=== PATIENT | female | born 1980 | race Caucasian/White ===

== ENCOUNTER 2017-10-26 21:28 | Emergency (ER) | payer OTHER ==
[2017-10-26] MEDS: MAGNESIUM SULFATE 2 GM/50 ML 50 ML IVPB (23:01)
[2017-10-26] MEDS: METHYLPREDNISOLONE 125 MG INJ IV (23:01)
[2017-10-26] MEDS: IPRATROPIUM (NEB) 0.5 MG/2.5 ML AMP INH (23:28)
[2017-10-26] MEDS: LEVALBUTEROL (NEB) 1.25 MG/0.5 ML AMP INH (23:28)
[2017-10-27 00:08] LABS: ADD MAN DIFF? NO
[2017-10-27 00:12] LABS: WHITE BLOOD COUNT 7.8 10^3/ul (4.8-10.8)
[2017-10-27 00:12] LABS: BASOPHILS % 0.5 % (0.0-2.0); EOSINOPHILS # 0.5 10^3/ul (0.0-0.5); EOSINOPHILS % 6.5 % (0.0-7.0); HEMOGLOBIN 14.1 g/dl (12.0-16.0); LYMPHOCYTES # 2.7 10^3/ul (0.8-2.9); LYMPHOCYTES % 34.1 % (15.0-51.0); MEAN CORPUSCULAR HEMOGLOBIN 31.1 pg (29.0-33.0); MEAN CORPUSCULAR HGB CONC 33.6 g/dl (32.0-37.0); MEAN CORPUSCULAR VOLUME 92.5 fl (82.0-101.0); MEAN PLATELET VOLUME 10.6 fl (7.4-10.4); MONOCYTE # 0.5 10^3/ul (0.3-0.9); MONOCYTES % 6.8 % (0.0-11.0); NEUTROPHIL # 4.1 10^3/ul (1.6-7.5); NEUTROPHILS % 51.8 % (39.0-77.0); PLATELET COUNT 280 10^3/UL (140-415); RED BLOOD COUNT 4.54 10^6/ul (4.20-5.40); RED CELL DISTRIBUTION WIDTH 13.2 % (11.5-14.5)
[2017-10-27 00:31] LABS: ANION GAP 17 (8-16); BLOOD UREA NITROGEN 4 mg/dl (7-20); CALCIUM 8.4 mg/dl (8.4-10.2); CARBON DIOXIDE 25 mmol/L (21-31); CHLORIDE 110 mmol/L (97-110); CREATININE 0.65 mg/dl (0.44-1.00); GLUCOSE 95 mg/dl (70-220); POTASSIUM 3.5 mmol/L (3.5-5.1); SODIUM 148 mmol/L (135-144)
== END 2017-10-27 03:22 | disposition home or self-care (01) ==
LOC: E/R 21:28
DX: J45.901 Unspecified asthma with (acute) exacerbation (principal); R05 Cough
CPT/HCPCS: 71045; 80048; 81025; 85025; 94644; 96374; 96375; 99284-25

== ENCOUNTER 2017-11-09 22:29 | Emergency (ER) | payer OTHER ==
[2017-11-09] MEDS: METHYLPREDNISOLONE 125 MG INJ IM (23:53)
[2017-11-09] MEDS: IPRATROPIUM (NEB) 0.5 MG/2.5 ML AMP NEB (23:59)
[2017-11-09] MEDS: ALBUTEROL 0.5% (NEB) 2.5 MG/0.5 ML AMP INH (23:59)
== END 2017-11-10 00:59 | disposition home or self-care (01) ==
LOC: FTE 11-10 00:59
DX: J45.901 Unspecified asthma with (acute) exacerbation (principal); J20.9 Acute bronchitis, unspecified; R06.02 Shortness of breath
CPT/HCPCS: 94644; 96372; 99284-25

== ENCOUNTER 2018-10-21 13:38 | Emergency (ER) | payer OTHER ==
[2018-10-21] MEDS: METHYLPREDNISOLONE 125 MG INJ IV (14:38)
[2018-10-21] MEDS: SOD CHLORIDE 0.9% 1,000 ML IV (14:38)
[2018-10-21] MEDS: IPRATROPIUM (NEB) 0.5 MG/2.5 ML AMP NEB (14:44)
[2018-10-21] MEDS: ALBUTEROL 0.5% (NEB) 2.5 MG/0.5 ML AMP NEB (14:44)
[2018-10-21] MEDS: MAGNESIUM SULFATE 2 GM/50 ML 50 ML IVPB (15:48)
[2018-10-21] MEDS: ALBUTEROL 0.083% (NEB) 2.5 MG/3 ML AMP HHN (16:55)
== END 2018-10-21 18:10 | disposition home or self-care (01) ==
LOC: FTE 13:38
DX: J45.901 Unspecified asthma with (acute) exacerbation (principal)
CPT/HCPCS: 71045; 94644; 94645; 96361; 96365; 96366; 96375; 99284-25